=== PATIENT | female | born 1940 | race Two or more races ===

== ENCOUNTER 2019-03-27 06:58 | Observation (INO) | payer BC ==
--- NOTE | 2019-03-27 07:25 | PDOC ---
History of Present Illness - General Chief Complaint: Syncope/Near Syncope Stated Complaint: PRE SYNCOPE - History of Present Illness Initial Comments: The pt is a 79F w/ a history of HTN and GERD who presents for evaluation s/p syncope. The pt reports having a BM this AM and during the BM began to feel lightheaded and endorses LOC. She was able to call for help beforehand, was caught, and did not fall/hit her head. She endorses post-syncopal diaphoresis and NBNB x2. She denies chest pain, trouble breathing, vision changes, dysuria, hematuria, blood in her stool, or changes in sensation. She also reports epigastric abdominal pain this AM that is burning, non- radiating, intermittent, worse with touch, and not alleviated by anything she can identify. She was prescribed an antacid PRN but did not take it yesterday or today. Pt reports a similar episode 3 months ago, has had 3 months of loose stools, s/ p EGD and Colonoscopy which were reported as normal Reports 3 BM/day PMH: HTN, GERD Meds: Metoprolol SH: Denies x3 03/27/19 07:57 Past History - Past Medical History Allergies/Adverse Reactions: Allergies Allergy/AdvReac Type Severity Reaction Status Date / Time No Known Allergies Allergy Verified 03/27/19 07:05 Home Medications: Ambulatory Orders Amlodipine Besylate [Norvasc -] 5 mg PO DAILY 03/07/13 Ibandronate Sodium [Boniva (Monthly)] 150 mg PO Q30D 03/07/13 Ascorbic Acid [Vitamin C] 100 mg PO DAILY 12/19/13 Aspirin [ASA -] 81 mg PO DAILY 12/19/13 Ca Cmb No.1/Vit D3/B-6/FA/B12 [Vitamin D3 1,000 Unit Tablet] 1 tab PO DAILY 11/02 Calcium Carbonate/Vitamin D3 [Calcium + Vitamin D Tablet] 1 tab PO DAILY Gabapentin 300 mg PO HS 12/19/13 [place]-3 Acid Ethyl Esters [Lovaza -] 2 cap PO DAILY 12/19/13 Metoprolol Succinate [Toprol XL -] 50 mg PO HS 12/20/13 Omeprazole Magnesium [Prilosec (OTC)] 20 mg PO DAILY #7 tablet 12/20/13 Rosuvastatin Calcium [Crestor] 10 mg PO DAILY 05/01/15 Metoprolol Succinate [Toprol Xl] 25 mg PO DAILY 03/27/19 Pantoprazole Sodium [Protonix -] 20 mg PO DAILY 03/27/19 Anemia: Yes Asthma: No Cancer: No Cardiac Disorders: No CVA: No COPD: No CHF: No Dementia: No Diabetes: No GI Disorders: Yes (,redundant colon) Disorders: No HTN: Yes Hypercholesterolemia: Yes Liver Disease: No Seizures: No Thyroid Disease: No - Surgical History Abdominal Surgery: No Appendectomy: No Cardiac Surgery: No Cholecystectomy: No Lung Surgery: No Neurologic Surgery: No Orthopedic Surgery: No - Suicide/Smoking/Psychosocial Hx Smoking Status: No Smoking History: Never smoked Number of Cigarettes Smoked Daily: 0 Information on smoking cessation initiated: No Hx Alcohol Use: Yes (Social) Drug/Substance Use Hx: No Substance Use Type: None Hx Substance Use Treatment: No Review of Systems - Review of Systems Able to Perform ROS?: Yes Comments:: GENERAL/CONSTITUTIONAL: No fever or chills. No weakness HEAD, EYES, EARS, NOSE AND THROAT: No change in vision. No ear pain or discharge. No sore throat CARDIOVASCULAR: No chest pain or shortness of breath RESPIRATORY: Denies cough, hemoptysis GASTROINTESTINAL: No constipation GENITOURINARY: No dysuria, frequency, or change in urination MUSCULOSKELETAL: No joint or muscle swelling or pain. No neck or back pain SKIN: No rash NEUROLOGIC: No headache, vertigo, or change in strength/sensation ENDOCRINE: No increased thirst. No abnormal weight change HEMATOLOGIC/LYMPHATIC: No anemia, easy bleeding, or history of blood clots ALLERGIC/IMMUNOLOGIC: No hives or skin allergy 03/27/19 07:25 Is the patient limited Upper Sorbian proficient: No *Physical Exam - Vital Signs Last Vital Signs Temp Pulse Resp BP Pulse Ox 98.2 F 98 H 18 107/65 98 03/27/19 07:02 03/27/19 07:02 03/27/19 07:02 03/27/19 07:02 03/27/19 07:02 - Physical Exam Comments: GENERAL: Awake, alert, and oriented to person/place/time, in no acute distress HEAD: No signs of trauma, normocephalic, atraumatic EYES: PERRLA, EOMI, sclera anicteric, conjunctiva clear ENT: Hearing grossly normal, nares patent, oropharynx clear without exudates. Moist mucosa LUNGS: No distress, speaks in full sentences, clear to auscultation bilaterally HEART: Regular rate and rhythm, normal S1 and S2, no murmurs appreciated, peripheral pulses normal and equal bilaterally ABDOMEN: Soft, mild epigastric TTP w/o rebound or guarding, normoactive bowel sounds. No guarding, no rebound EXTREMITIES: Normal inspection, Normal range of motion, no edema. No clubbing or cyanosis NEUROLOGICAL: Cranial nerves II through XII grossly intact. Normal speech, normal gait, no focal sensorimotor deficits SKIN: Warm, Dry 03/27/19 07:25 ED Treatment Course - LABORATORY CBC & Chemistry Diagram: 03/27/19 08:00 03/27/19 08:00 Medical Decision Making - Medical Decision Making The pt is a 79F w/ a history of HTN and GERD who presents for evaluation s/p syncope Ddx: vasovagal, orthostatic, ACS, less likely CVA ED Course Labs sent ECG CXR CT head No anemia Lytes unremarkable Trop I neg LFTs unremarkable No DENISE Plan for Tele obs for Syncope Pt signed out Dr. Garcia Cardiology consult order placed for Dr. Ngo Dispo: Tele obs 03/27/19 11:05 *DC/Admit/Observation/Transfer - Discharge Dispostion Condition at time of disposition: Fair - Referrals - Patient Instructions - Post Discharge Activity
[2019-03-27] MEDS ORDERED: SODIUM CHLORIDE 0.9% 500 ML INFUS.BAG IV ONE (08:25)
[2019-03-27] MEDS ORDERED: MAG HYDROX/AL HYDROX/SIMETH 30 ML UNIT-DOSE CUP PO ONE (08:26)
[2019-03-27] MEDS ORDERED: ACETAMINOPHEN 1000 MG/100 ML VIAL (NON FORMULARY) IVPB ONE (08:26)
[2019-03-27] MEDS ORDERED: FAMOTIDINE 20 MG/50 ML IVPB 20 MG/50 ML MG IVPB ONE ×2 (08:26→09:32)
[2019-03-27 08:34] LABS: BASO % 0.3 % (0-2.0); EOS % 0.3 % (0-4.5); HEMATOCRIT 39.9 % (32.4-45.2); HEMOGLOBIN 13.3 GM/dL (10.7-15.3); LYMPH % 8.1 % (8-40); MCH 29.5 pg (25.7-33.7); MCHC 33.3 g/dl (32.0-36.0); MEAN CELL VOLUME 88.6 fl (80-96); MONO % 4.1 % (3.8-10.2); NEUT % 87.2 % (42.8-82.8); PLATELET COUNT 182 K/MM3 (134-434); RBC 4.51 M/mm3 (3.60-5.2); RDW 13.7 % (11.6-15.6); WHITE BLOOD COUNT 12.4 K/mm3 (4.0-10.0)
[2019-03-27 09:08] LABS: ALBUMIN 3.9 g/dl (3.4-5.0); ALK PHOS 61 U/L (45-117); ANION GAP 5 MMOL/L (8-16); BILIRUBIN,TOTAL 0.5 mg/dL (0.2-1); BLOOD UREA NITROGEN 10.5 mg/dL (7-18); CALCIUM 8.4 mg/dL (8.5-10.1); CHLORIDE 110 mmol/L (98-107); CO2 26 mmol/L (21-32); CREATININE 0.5 mg/dL (0.55-1.3); GLUCOSE,RANDOM 109 mg/dL (74-106); MAGNESIUM 2.2 mg/dL (1.8-2.4); PHOSPHOROUS 2.7 mg/dL (2.5-4.9); POTASSIUM 3.6 mmol/L (3.5-5.1); SGOT/AST 18 U/L (15-37); SGPT/ALT 23 U/L (13-61); SODIUM 141 mmol/L (136-145); TOT PROT 7.1 g/dl (6.4-8.2)
[2019-03-27] MEDS ORDERED: ACETAMINOPHEN INJECTION 0 ML IVPB ONE (09:31)
[2019-03-27] MEDS ORDERED: MAG HYDROX/AL HYDROX/SIMETH 30 ML UNIT-DOSE CUP ONE (09:32)
[2019-03-27 10:38] LABS: PH,URINE 7.5 (5.0-8.0); URINE APPEARANCE CLEAR; URINE BILIRUBIN NEGATIVE (NEGATIVE); URINE COLOR YELLOW; URINE GLUCOSE (UA) NEGATIVE (NEGATIVE); URINE KETONE NEGATIVE (NEGATIVE); URINE LEUK ESTERASE NEGATIVE (NEGATIVE); URINE NITRITE NEGATIVE (NEGATIVE); URINE PROTEIN NEGATIVE (NEGATIVE); URINE UROBILINOGEN 0.2 mg/dL (0.2-1.0)
--- NOTE | 2019-03-27 11:40 | PDOC ---
Attending Attestation - Resident Resident Name: Shawn Varner - ED Attending Attestation I have performed the following: I have examined & evaluated the patient, The case was reviewed & discussed with the resident, I agree w/resident's findings & plan - HPI HPI: 03/27/19 11:36 79y/o F h/o syncopal episode in the past pending cardiology workup as outpt presents now with repeat syncope in the setting on walking to/from bathroom. no chest pain/palpitations. no recent dehydration or sxs of infection. - Physicial Exam PE: 03/27/19 11:37 VSS, slight tachy at triage but normalized on exam atraumatic lungs clear heart regular neuro nonfocal - Medical Decision Making 03/27/19 11:38 79y/o F with syncope, no injury. HD stable. labs wnl, ekg sinus admit for tele monitoring/echo cards consulted Heart Score/ECG Review #1 ECG reviewed & interpreted by me at: 08:32 General ECG Interpretation: Sinus Rhythm, Normal Rate (65), Normal Intervals ( qtc 430), No acute ischemic changes
--- NOTE | 2019-03-27 13:25 | CON.CARD ---
Consult Consult Specialty:: Cardiology Referred by:: Dr. Garcia Reason for Consultation:: Syncope - History of Present Illness Chief Complaint: Syncope while in bathroom History of Present Illness: 79 F w/ HTN and HLD presents to ER with episode of syncope while on toilet this AM. Chronic epigastric pain and loose stool for several months, has had EGD and colonoscopy which are unremarkable by her report. This AM awoke with epigastric pain and "gas" and went to bathroom and while on toilet developed mild nauses, diaphoresis and per transient LOC. Similar episode 3 months ago and was evaluated by Dr. Ngo as outpatient and was diagnosed w/ vasovagal syncope. Exercises at gym several days per week: on treadmill for 45 minutes, no limitation. No CP or SOB. Denies palps, edema, PND or orthopnea. ECG: NSR 65 bpm, nl intervals, no acute ischemic changes. 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: Alzheimer's, CVA, Dementia, Migraine, Multiple Sclerosis, Peripheral Neuropathy, Parkinson's, Seizure, Syncope, TIA, Vertigo, Other Cardio/Vascular: Yes: HTN, Hyperlipdemia Pulmonary: No: Asthma, Bronchitis, Cancer, COPD, O2 Dependent, Pneumonia, Previously Intubated, Pulmonary Embolus, Pulmonary Fibrosis, Sleep Apnea, Other Gastrointestinal: No: Ascites, Cancer, Constipation, Crohn's Disease, Diverticulitis, Diverticulosis, Esophageal Varices, Gastritis, GERD, GI Bleed, Hemorrhoids, Hiatal Hernia, Inflamatory Bowel Disease, Irritable Bowel Disease, Pancreatitis, Peptic Ulcer Disease, Ulcerative Colitis, Other Hepatobiliary: No: Cirrhosis, Cholelithiasis, Cholecystitis, Choledocholithiasis , Hepatitis A, Hepatitis B, Hepatitis C, Other Renal/: No: Renal Failure, Renal Inusuff, BPH, Cancer, Hematuria, Hemodialysis , Neurogenic Bladder, Renal Calculi, UTI, Other Reproductive: No: Ectopic , Endometriosis, Fibroids, PID, Polycystic Ovary Syndrome, Postmenopausal, Other Heme/Onc: No: Anemia, B12 Deficiency, Bleeding Disorder, Cancer, Current Chemotherapy, Current Radiation Therapy, Hemochromatosis, Hypercoaguable State, Myeloproliferative Synd, Sickle Cell Disease, Sickle Cell Trait, Thrombocytopenia, Other Infectious Disease: No: AIDS, C-Diff, Herpes Zoster, HIV, MRSA, STD's, Tuberculosis, VREF, Other Psych: No: Addictions, Anxiety, Bipolar, Depression, Panic, Psychosis, Schizophrenia, Other Musculoskeletal: No: Bursitis, Chronic low back pain, Hemiparesis, Hemiplegia, Osteoarthritis, Paraplegia, Other Rheumatology: No: Fibromyalgia, Gout, Lupus, Rheumatoid Arthritis, Sarcoidosis, Vasculitis, Other ENT: No: Allergic Rhinitis, Sinusitis, Other Endocrine: No: Weston's Disease, Felipe's Disease, Diabetes Insipidus, Diabetes Mellitus, Hyperparathyroidism, Hyperthyroidism, Hypothyroidism, Osteopenia, SIADH, Other - Alcohol/Substance Use Hx Alcohol Use: Yes (Social) - Smoking History Smoking history: Never smoked Aproximately how many cigarettes per day: 0 - Social History Usual Living Arrangement: With Spouse History of Recent Travel: No Home Medications - Allergies Allergies/Adverse Reactions: Allergies Allergy/AdvReac Type Severity Reaction Status Date / Time No Known Allergies Allergy Verified 03/27/19 07:05 - Home Medications Home Medications: Ambulatory Orders Amlodipine Besylate [Norvasc -] 5 mg PO DAILY 03/07/13 Ibandronate Sodium [Boniva (Monthly)] 150 mg PO Q30D 03/07/13 Ascorbic Acid [Vitamin C] 100 mg PO DAILY 12/19/13 Aspirin [ASA -] 81 mg PO DAILY 12/19/13 Ca Cmb No.1/Vit D3/B-6/FA/B12 [Vitamin D3 1,000 Unit Tablet] 1 tab PO DAILY 11/02 Calcium Carbonate/Vitamin D3 [Calcium + Vitamin D Tablet] 1 tab PO DAILY Gabapentin 300 mg PO HS 12/19/13 [place]-3 Acid Ethyl Esters [Lovaza -] 2 cap PO DAILY 12/19/13 Metoprolol Succinate [Toprol XL -] 50 mg PO HS 12/20/13 Omeprazole Magnesium [Prilosec (OTC)] 20 mg PO DAILY #7 tablet 12/20/13 Rosuvastatin Calcium [Crestor] 10 mg PO DAILY 05/01/15 Family Disease History - Family Disease History Family History: Unremarkable (no early CAD or SCD) Review of Systems Findings/Remarks: see HPI Head CT negative in ER - Review of Systems Constitutional: reports: No Symptoms Eyes: reports: No Symptoms HENT: reports: No Symptoms Neck: reports: No Symptoms Cardiovascular: reports: No Symptoms Respiratory: reports: No Symptoms Gastrointestinal: reports: Abdominal Pain, Indigestion Genitourinary: reports: No Symptoms Breasts: reports: No Symptoms Reported Musculoskeletal: reports: No Symptoms Integumentary: reports: No Symptoms Neurological: reports: No Symptoms Endocrine: reports: No Symptoms Hematology/Lymphatic: reports: No Symptoms Psychiatric: reports: No Symptoms Vital Signs: Vital Signs Temperature 98.7 F 03/27/19 10:12 Pulse Rate 82 03/27/19 10:12 Respiratory Rate 20 03/27/19 10:12 Blood Pressure 118/82 03/27/19 10:12 O2 Sat by Pulse Oximetry (%) 98 03/27/19 10:12 Constitutional: Yes: No Distress Eyes: Yes: Conjunctiva Clear, EOM Intact Gastrointestinal: Yes: Soft Cardiovascular: Yes: Regular Rate and Rhythm JVD: No Carotid Bruit: No PMI: Non-Displaced Heart Sounds: Yes: S1, S2 Edema: No Peripheral Pulses WNL: Yes Neurological: Yes: Alert, Oriented - Other Data Labs, Other Data: CBC, BMP 03/27/19 08:00 03/27/19 08:00 Troponin, BNP 03/27/19 08:00 Troponin I < 0.02 Troponin, BNP 03/27/19 08:00 Troponin I < 0.02 NSR 65bpm, no acute ST changes, normal intervals Echo: Pending Imaging - Results Chest X-ray: Image Reviewed Cat Scan: Report Reviewed EKG: Image Reviewed Assessment/Plan IMP: 1. Likely recurrent vasovagal syncope 2. Chronic epigastric and nonspecific abdominal pain 3. History of HTN 4. History of Hyperlipidemia REC: 1. Complete 24 hours telemetry, doubt arrhythmia. If no events after 24 hours, can d/c with outpatient f/u 2. Echo. Will check office records to review previous evaluation. 3. Check orthostatics. 4. Carotid duplex to eval posterior circulation. 5. Second cardiac enzyme If above eval negative, plan for d/c home in AM with outpt f/u w/ Dr. Ngo. Thank you.
--- NOTE | 2019-03-27 14:33 | EKG ---
Test Reason : Blood Pressure : / mmHG Vent. Rate : 065 BPM Atrial Rate : 065 BPM P-R Int : 194 ms QRS Dur : 084 ms QT Int : 414 ms P-R-T Axes : 057 -05 044 degrees QTc Int : 430 ms NORMAL SINUS RHYTHM NORMAL ECG NO PREVIOUS ECGS AVAILABLE Confirmed by Kayden Ceron ([id number]) on 03/27/2019 2:32:55 PM Referred By: Confirmed By:Kayden Ceron
--- NOTE | 2019-03-27 15:00 | ECHO ---
Version: 1 Name: DEE HANDLEY Exam: Adult Echocardiogram Study Date: 03/27/2019, 1:52 PM Age: 79 Years MMode/2D Measurements & Calculations IVSd: 1.50 cm LVIDs: 2.10 cm LVIDd: 2.9 cm LVPWd: 1.04 cm LAV (MOD-bp): 37.3 ml LVOT diam: 1.95 cm Ao root diam: 2.9 cm LA dimension: 2.9 cm Doppler Measurements & Calculations MV E max aubrey: 74.7 cm/sec Med E/e': 12.7 MV A max aubrey: 124.2 cm/sec Med Peak E' Aubrey: 5.9 cm/sec MV E/A: 0.60 Lat E/e': 16.3 Lat Peak E' Aubrey: 4.6 cm/sec Ao max P.7 mmHg Ao V2 max: 129.0 cm/sec Left Ventricle The left ventricular size, thickness and function are normal. Ejection Fraction = 65. The transmitra l spectral Doppler flow pattern is suggestive of impaired LV relaxation. Right Ventricle The right ventricle is normal in size and function. Atria Normal left and right atrial size and function. Mitral Valve There is mild mitral valve thickening. There is trace mitral regurgitation. Tricuspid Valve The tricuspid valve is normal. There is trace tricuspid regurgitation. Aortic Valve The aortic valve is normal in structure and function. Pulmonic Valve The prosthetic pulmonic valve is not well visualized. Great Vessels The aortic root is normal size. Normal aortic arch, descending and ascending aorta. Pericardium/Pleura There is no pericardial effusion. Summary Statements The left ventricular size, thickness and function are normal The transmitral spectral Doppler flow pattern is suggestive of impaired LV relaxation. The right ventricle is normal in size and function. Normal left and right atrial size and function. There is mild mitral valve thickening. There is trace mitral regurgitation. The tricuspid valve is normal. There is trace tricuspid regurgitation. The aortic valve is normal in structure and function. The prosthetic pulmonic valve is not well visualized. The aortic root is normal size. Normal aortic arch, descending and ascending aorta There is no pericardial effusion. Leander Sloan 03/27/2019, 1:59 PM Ordering Physician: Isai Richardson Referring Physician: Gabe Garcia Performed By: Mony Mtz
[2019-03-27 17:38] VITALS: BMI 25.2
[2019-03-27] MEDS ORDERED: ACETAMINOPHEN 325 MG TABLET (FP) PO ONE (23:45)
[2019-03-28 06:14] VITALS: BP 140/77; PULSE 68; TEMP 97.7
--- NOTE | 2019-03-28 10:29 | PN ---
Progress Note (short form) - Note Progress Note: s: no chest pain, palps, dizziness, lightheadedness Vital Signs Period Temp Pulse Resp BP Sys/Aguilar Pulse Ox Last 24 Hr 97.7 F-98.3 F 68-87 19-20 125-150/61-77 96-96 Constitutional: Yes: No Distress Eyes: Yes: Conjunctiva Clear, EOM Intact Gastrointestinal: Yes: Soft Cardiovascular: Yes: Regular Rate and Rhythm JVD: No Carotid Bruit: No PMI: Non-Displaced Heart Sounds: Yes: S1, S2 Edema: No Peripheral Pulses WNL: Yes Neurological: Yes: Alert, Oriented NSR 65bpm, no acute ST changes, normal intervals Echo: Pending Imaging - Results Chest X-ray: Image Reviewed Cat Scan: Report Reviewed EKG: Image Reviewed tele: sinus Assessment/Plan IMP: 1. Likely recurrent vasovagal syncope 2. Chronic epigastric and nonspecific abdominal pain 3. History of HTN 4. History of Hyperlipidemia REC: 1. monitoring on tele - no events 2. Echo - nl LV/RV function, E/A reversal 3. orthostatics negative 4. Carotid duplex with no hemodynamically significant stenosis stable for dc from cardiac perspective, no further inpatient testing
--- NOTE | 2019-03-28 10:50 | HP ---
DATE OF ADMISSION: 03/27/2019 DATE OF DICTATION: 03/28/2019 HISTORY OF PRESENT ILLNESS: This is a 79-year-old [place] female known to me before, came to the emergency room yesterday after she had a syncopal episode. She said she was in the bathroom and passed out. She was evaluated by the automotive mechanic unremarkable. She had a CAT scan of the head unremarkable and carotid Doppler studies showed bilateral plaques. This morning patient is awake, alert, oriented, not in distress. PHYSICAL EXAMINATION: Vitals: BP 140/80, pulse 72, respirations 20, temperature 98. HEENT: Unremarkable. Neck: Supple, no JVD. Lungs: Clear. Heart: S1, S2 normal, no S3, S4. Abdomen: Soft. Extremities: Legs no edema. Neurologic: Grossly normal. LABORATORY REPORTS: WBC 12, hemoglobin 13, platelet adequate. Chemistry: Electrolytes are normal. Troponin is negative. Blood sugar 109. CT of the head negative. Carotid Doppler studies negative. MD ruled out. IMPRESSION: Syncopal episode etiology unknown. PLAN: Will discharge home. Follow up with her cardiology and will advise to see her neurologist as an outpatient. I will see, evaluate, come back to my office in a week. Carlton [id number]
== END 2019-03-28 11:21 | disposition home or self-care (01) ==
LOC: JER 06:58 → JERBED 08:33 → J4S 15:56
PROVIDERS: ADMIT Internal Medicine; ATTEND Internal Medicine
PROC: 3E033GC Introduction of Other Therapeutic Substance into Peripheral Vein, Percutaneous Approach (ICD-10-PCS; principal; 2019-03-28)
DX: R55 Syncope and collapse (principal); R42 Dizziness and giddiness; R10.13 Epigastric pain; I10 Essential (primary) hypertension
CPT/HCPCS: 36415; 70450-TC; 71045-TC-FY; 80053; 81003; 82550; 83735; 84100; 84484; 85025; 93005; 93010; 93306-TC; 93880-TC; 99284-25; G0378